=== PATIENT | female | born 1970 | race Caucasian/White ===

== ENCOUNTER → 2017-01-26 | Outpatient (CLI) | payer BC ==
[2017-01-26 12:45] LABS: HEMOGLOBIN 8.5 gm/dl (12.3-15.3); RED BLOOD COUNT 3.56 M/UL (4.00-5.10); WHITE BLOOD COUNT 3.9 K/UL (4.5-11.0)
[2017-01-26 13:05] LABS: BUN/CREATININE RATIO 10 (0-10)
== END ==
LOC: LAB 12:08
PROVIDERS: Internal Medicine Hematology & Oncology
DX: C85.90 Non-Hodgkin lymphoma, unspecified, unspecified site (principal)
CPT/HCPCS: 80053; 82728; 83540; 83550; 85025

== ENCOUNTER → 2017-02-06 | Outpatient (CLI) | payer BC | LOC: OPSV 02-03 15:30 | DX: D64.9 Anemia, unspecified (principal); R19.7 Diarrhea, unspecified; K90.9 Intestinal malabsorption, unspecified; C18.9 Malignant neoplasm of colon, unspecified | CPT/HCPCS: 96365; J1756; J7050 ==

== ENCOUNTER → 2017-02-11 | Outpatient (CLI) | payer BC | LOC: OPSV 15:10 | DX: D64.9 Anemia, unspecified (principal); R19.7 Diarrhea, unspecified; K90.9 Intestinal malabsorption, unspecified | CPT/HCPCS: 96365; J1756; J7050 ==

== ENCOUNTER → 2017-02-18 | Outpatient (CLI) | payer BC | LOC: OPSV 13:59 | DX: D64.9 Anemia, unspecified (principal); R19.7 Diarrhea, unspecified; K90.9 Intestinal malabsorption, unspecified; C18.9 Malignant neoplasm of colon, unspecified | CPT/HCPCS: 96365; J1756; J7050 ==

== ENCOUNTER → 2017-02-25 | Outpatient (CLI) | payer BC ==
[~2017-02-25] VITALS: Ht 162.6 cm; Wt 77.1 kg
== END ==
LOC: OPSV 15:00
DX: C18.9 Malignant neoplasm of colon, unspecified (principal); D64.9 Anemia, unspecified; R19.7 Diarrhea, unspecified; K90.9 Intestinal malabsorption, unspecified; Z88.5 Allergy status to narcotic agent; Z88.1 Allergy status to other antibiotic agents
CPT/HCPCS: 96365; J1756; J7050

== ENCOUNTER → 2017-03-18 | Outpatient (CLI) | payer BC ==
[~2017-03-18] VITALS: Ht 162.6 cm; Wt 77.1 kg
[2017-03-18 15:47] LABS: HEMOGLOBIN 9.4 gm/dl (12.3-15.3); RED BLOOD COUNT 4.05 M/UL (4.00-5.10); WHITE BLOOD COUNT 4.2 K/UL (4.5-11.0)
[2017-03-18 15:56] LABS: BUN/CREATININE RATIO 10 (0-10)
== END ==
LOC: OPSV 15:02
PROVIDERS: Internal Medicine
DX: C18.9 Malignant neoplasm of colon, unspecified (principal); R19.7 Diarrhea, unspecified; K90.9 Intestinal malabsorption, unspecified; D64.9 Anemia, unspecified
CPT/HCPCS: 36415; 80048; 80076; 82607; 82728; 83540; 84443; 85025; 96365; J1756; J7050

== ENCOUNTER → 2017-03-23 | Outpatient (CLI) | payer BC ==
[2017-03-23 09:31] LABS: HEMOGLOBIN 9.5 gm/dl (12.3-15.3); RED BLOOD COUNT 4.09 M/UL (4.00-5.10); WHITE BLOOD COUNT 3.4 K/UL (4.5-11.0)
[2017-03-23 10:20] LABS: BUN/CREATININE RATIO 11 (0-10)
== END ==
LOC: LAB 08:42
PROVIDERS: Internal Medicine Hematology & Oncology
DX: D50.8 Other iron deficiency anemias (principal)
CPT/HCPCS: 36415; 80053; 82378; 83615; 84550; 85025

== ENCOUNTER → 2017-04-29 | Outpatient (CLI) | payer BC ==
[~2017-04-29] VITALS: Ht 162.6 cm; Wt 77.1 kg
[2017-04-29 12:56] LABS: HEMOGLOBIN 9.6 gm/dl (12.3-15.3); RED BLOOD COUNT 4.26 M/UL (4.00-5.10); WHITE BLOOD COUNT 4.6 K/UL (4.5-11.0)
== END ==
LOC: OPSV 11:00
PROVIDERS: Internal Medicine
DX: D64.9 Anemia, unspecified (principal); R19.7 Diarrhea, unspecified; K90.9 Intestinal malabsorption, unspecified; C18.9 Malignant neoplasm of colon, unspecified
CPT/HCPCS: 36415; 82607; 82728; 83540; 85027; 96365; J1756; J7050

== ENCOUNTER → 2017-08-11 | Outpatient (CLI) | payer BC ==
[2017-08-11 09:21] LABS: BUN/CREATININE RATIO 12 (0-10)
[2017-08-11 09:37] LABS: HEMOGLOBIN 10.6 gm/dl (12.3-15.3); RED BLOOD COUNT 4.41 M/UL (4.00-5.10); WHITE BLOOD COUNT 4.3 K/UL (4.5-11.0)
== END ==
LOC: LAB 07:46
PROVIDERS: Internal Medicine Hematology & Oncology
DX: C83.30 Diffuse large B-cell lymphoma, unspecified site (principal)
CPT/HCPCS: 36415; 80053; 82378; 83615; 84550; 85025

== ENCOUNTER → 2020-12-17 | Outpatient (CLI) | payer BC ==
[~2020-12-17] MED LIST: ANTI-DIARRHEAL2 M1 PO; BENTYL 10MG CAP10 MG PO; BENTYL 20MG TAB20 MG PO; EFFEXOR XR75 MG PO; LOMOTIL 2.5-0.1 EACH PO; LOPERAMIDE2 MG PO; PROTONIX40 M1 PO; PROZAC20 MG PO; WELCHOL 625 MG625 MG PO; ZOFRAN4 MG PO
[2020-12-17 14:24] LABS: HEMOGLOBIN 14.5 gm/dl (12.3-15.3); RED BLOOD COUNT 5.04 M/UL (4.00-5.10)
== END ==
LOC: LAB 13:31
PROVIDERS: Internal Medicine
DX: E87.6 Hypokalemia (principal); E78.5 Hyperlipidemia, unspecified; I10 Essential (primary) hypertension
CPT/HCPCS: 36415; 80053; 83735; 85025; J7030

== ENCOUNTER → 2020-12-18 | Outpatient (CLI) | payer BC | LOC: OPSV 12:30 | PROVIDERS: Internal Medicine | DX: N17.9 Acute kidney failure, unspecified (principal); E86.0 Dehydration | CPT/HCPCS: 36415; 80053; 96360; 96361; J7030 ==

== ENCOUNTER 2020-12-23 12:01 | Inpatient (IN) | payer BC ==
[~2020-12-23] VITALS: Ht 162.6 cm; Wt 61.2 kg
[2020-12-23 13:14] LABS: RED BLOOD COUNT 5.84 M/UL (4.00-5.10); WHITE BLOOD COUNT 10.6 K/UL (4.5-11.0)
[2020-12-23 13:18] LABS: HEMOGLOBIN 17.3 gm/dl (12.3-15.3)
[2020-12-24 04:51] LABS: WHITE BLOOD COUNT 8.3 K/UL (4.5-11.0)
[2020-12-24 04:53] LABS: HEMOGLOBIN 12.3 gm/dl (12.3-15.3); RED BLOOD COUNT 4.29 M/UL (4.00-5.10)
[2020-12-24] MEDS ORDERED: LOMOTIL 2.5-0.1 EACH PO (13:23)
== END 2020-12-24 14:10 | disposition home or self-care (01) | DRG 683 ==
LOC: ER1 12:01 → CDU 14:11
PROVIDERS: Physician Assistant; Physician Assistant Medical; ADMIT Internal Medicine
DX: N17.9 Acute kidney failure, unspecified (principal); E87.1 Hypo-osmolality and hyponatremia; C85.90 Non-Hodgkin lymphoma, unspecified, unspecified site; E87.6 Hypokalemia; Z85.038 Personal history of other malignant neoplasm of large intestine; F41.9 Anxiety disorder, unspecified; Z20.822 Contact with and (suspected) exposure to COVID-19; Z90.49 Acquired absence of other specified parts of digestive tract; E86.0 Dehydration; R11.2 Nausea with vomiting, unspecified; E83.42 Hypomagnesemia
CPT/HCPCS: 80048; 80053; 83735; 85025; 85027; 96365; 96366; 96375; 99285; J2405; J3475; J7030; U0002

== ENCOUNTER → 2020-12-25 | Outpatient (CLI) | payer BC, OTHER | LOC: OPSV 08:05 | PROVIDERS: Internal Medicine | DX: R11.2 Nausea with vomiting, unspecified (principal); R19.7 Diarrhea, unspecified; E87.1 Hypo-osmolality and hyponatremia; E86.0 Dehydration | CPT/HCPCS: 80053; 83735 ==

== ENCOUNTER → 2021-01-07 | Outpatient (CLI) | payer BC, OTHER | LOC: LAB 14:51 | PROVIDERS: Internal Medicine | DX: R11.10 Vomiting, unspecified (principal); R19.7 Diarrhea, unspecified | CPT/HCPCS: 36415; 80053 ==

== ENCOUNTER → 2021-01-08 | Outpatient (CLI) | payer BC, OTHER | LOC: OPSV 09:53 | PROVIDERS: Internal Medicine | DX: N19 Unspecified kidney failure (principal); E86.0 Dehydration | CPT/HCPCS: 80053; 96360; 96361; J7030 ==

== ENCOUNTER → 2021-01-09 | Outpatient (CLI) | payer BC, OTHER | LOC: OPSV 07:55 | PROVIDERS: Internal Medicine | DX: N19 Unspecified kidney failure (principal); E86.0 Dehydration | CPT/HCPCS: 36415; 80053; 96360; 96361; J0696 ==

== ENCOUNTER → 2021-01-28 | Outpatient (CLI) | payer BC, OTHER | LOC: OPSV 09:35 | PROVIDERS: Internal Medicine | DX: E86.0 Dehydration (principal); E87.6 Hypokalemia | CPT/HCPCS: 36415; 80048; 96360; 96361; J3480 ==

== ENCOUNTER → 2021-01-30 | Outpatient (CLI) | payer BC, OTHER | LOC: LAB 09:38 | PROVIDERS: Internal Medicine | DX: E86.0 Dehydration (principal); R11.10 Vomiting, unspecified | CPT/HCPCS: 36415; 80053 ==

== ENCOUNTER → 2021-02-07 | Outpatient (CLI) | payer BC, OTHER | LOC: OPSV 10:02 | PROVIDERS: Internal Medicine | DX: N17.9 Acute kidney failure, unspecified (principal) | CPT/HCPCS: 36415; 80048; 96360 ==

== ENCOUNTER → 2021-02-08 | Outpatient (CLI) | payer BC, OTHER | LOC: LAB 08:47 | PROVIDERS: Internal Medicine | DX: N17.9 Acute kidney failure, unspecified (principal) | CPT/HCPCS: 36415; 80053; 83735 ==

== ENCOUNTER → 2021-02-21 | Outpatient (CLI) | payer BC, OTHER | LOC: OPSV 13:12 | DX: K90.9 Intestinal malabsorption, unspecified (principal); R79.0 Abnormal level of blood mineral | CPT/HCPCS: 96365; J3475 ==

== ENCOUNTER → 2021-02-27 | Outpatient (CLI) | payer BC, OTHER | LOC: OPSV 12:56 | DX: E86.0 Dehydration (principal); R79.0 Abnormal level of blood mineral; Z15.09 Genetic susceptibility to other malignant neoplasm | CPT/HCPCS: 96360; 96365; J3475 ==

== ENCOUNTER → 2021-02-28 | Outpatient (CLI) | payer BC, OTHER ==
[2021-02-28 09:21] LABS: BUN/CREATININE RATIO 23 (0-10)
== END ==
LOC: LAB 07:54
PROVIDERS: Internal Medicine
DX: E88.09 Other disorders of plasma-protein metabolism, not elsewhere classified (principal); R79.0 Abnormal level of blood mineral; Z15.09 Genetic susceptibility to other malignant neoplasm
CPT/HCPCS: 36415; 80053; 83735

== ENCOUNTER → 2021-03-15 | Outpatient (CLI) | payer BC, OTHER | LOC: OPSV 09:55 | DX: R79.0 Abnormal level of blood mineral (principal) | CPT/HCPCS: 96365; J3475 ==

== ENCOUNTER → 2021-04-19 | Outpatient (CLI) | payer BC, OTHER | LOC: LAB 13:35 | PROVIDERS: Internal Medicine | DX: R19.7 Diarrhea, unspecified (principal); R79.0 Abnormal level of blood mineral | CPT/HCPCS: 36415; 80053; 83735 ==

== ENCOUNTER → 2021-04-22 | Outpatient (CLI) | payer BC, OTHER | LOC: LAB 07:34 | PROVIDERS: Internal Medicine | DX: E87.6 Hypokalemia (principal); R19.7 Diarrhea, unspecified; R79.0 Abnormal level of blood mineral | CPT/HCPCS: 36415; 80053; 83735 ==

== ENCOUNTER 2021-07-22 06:18 | Inpatient (IN) | payer BC ==
[~2021-07-22] VITALS: Ht 162.6 cm; Wt 72.6 kg
[2021-07-22 07:12] LABS: HEMOGLOBIN 15.8 gm/dl (12.3-15.3); RED BLOOD COUNT 5.53 M/UL (4.00-5.10)
[2021-07-22] MEDS ORDERED: NEXIUM40 MG PO (10:34)
[2021-07-22] MEDS ORDERED: COLESTID1 GM PO (10:35)
[2021-07-22] MEDS ORDERED: MAGNESIUM400 M2 PO (10:35)
[2021-07-22] MEDS ORDERED: REGLAN5 MG PO (10:54)
[2021-07-23 08:36] LABS: RED BLOOD COUNT 4.71 M/UL (4.00-5.10); WHITE BLOOD COUNT 9.6 K/UL (4.5-11.0)
[2021-07-23 15:38] LABS: WHITE BLOOD COUNT 13.1 K/UL (4.5-11.0)
[2021-07-24 06:25] LABS: HEMOGLOBIN 12.6 gm/dl (12.3-15.3); RED BLOOD COUNT 4.43 M/UL (4.00-5.10); WHITE BLOOD COUNT 10.2 K/UL (4.5-11.0)
[2021-07-24 07:02] LABS: BUN/CREATININE RATIO 33 (0-10)
[2021-07-25 07:19] LABS: HEMOGLOBIN 11.6 gm/dl (12.3-15.3); RED BLOOD COUNT 4.19 M/UL (4.00-5.10); WHITE BLOOD COUNT 8.7 K/UL (4.5-11.0)
[2021-07-25 08:05] LABS: BUN/CREATININE RATIO 27 (0-10)
== END 2021-07-25 12:20 | disposition home or self-care (01) | DRG 872 ==
LOC: ER1 06:18 → CDU 10:09 → M/S 16:26
PROVIDERS: Emergency Medicine; ADMIT Internal Medicine
DX: A41.9 Sepsis, unspecified organism (principal); N17.9 Acute kidney failure, unspecified; K91.30 Postprocedural intestinal obstruction, unspecified as to partial versus complete; E87.1 Hypo-osmolality and hyponatremia; E87.2 Acidosis; K56.7 Ileus, unspecified; E86.0 Dehydration; K52.9 Noninfective gastroenteritis and colitis, unspecified; E87.6 Hypokalemia; Y83.8 Other surgical procedures as the cause of abnormal reaction of the patient, or of later complication, without mention of misadventure at the time of the procedure; Z90.49 Acquired absence of other specified parts of digestive tract; Z90.710 Acquired absence of both cervix and uterus
CPT/HCPCS: 36415; 74018; 80048; 80053; 80076; 81001; 82436; 83605; 83615; 83690; 83735; 83930; 83935; 84100; 84133; 84300; 84703; 85025; 85027; 86140; 87040; 87086; 87449; 96360; 96361; 96374; 96375; 99285; C9113; J1170; J1335; J1650; J1885; J2270; J2405; J2550; J2765; J3480; J7030; U0002

== ENCOUNTER → 2021-08-08 | Outpatient (CLI) | payer BC ==
[~2021-08-08] MED LIST changes: +COLESTID1 GM PO; +MAGNESIUM400 M2 PO; +NEXIUM40 MG PO; +REGLAN5 MG PO
== END ==
LOC: LAB 10:12
PROVIDERS: Internal Medicine
DX: N17.9 Acute kidney failure, unspecified (principal); E86.0 Dehydration; E87.6 Hypokalemia
CPT/HCPCS: 36415; 80053; 83735

== ENCOUNTER → 2021-08-08 | Outpatient (CLI) | payer BC | LOC: OPSV 12:42 | PROVIDERS: Internal Medicine | DX: N17.9 Acute kidney failure, unspecified (principal); E86.0 Dehydration | CPT/HCPCS: 36415; 80048; 96360; 96361; J7030 ==

== ENCOUNTER → 2021-08-09 | Outpatient (CLI) | payer BC | LOC: OPSV 11:27 | PROVIDERS: Internal Medicine | DX: N17.9 Acute kidney failure, unspecified (principal) | CPT/HCPCS: 36415; 80048; 83735; 96360; 96361; J3480 ==

== ENCOUNTER → 2021-09-02 | Outpatient (CLI) | payer BC ==
[2021-09-02 15:30] LABS: HEMOGLOBIN 8.5 gm/dl (12.3-15.3); RED BLOOD COUNT 3.24 M/UL (4.00-5.10); WHITE BLOOD COUNT 13.2 K/UL (4.5-11.0)
[2021-09-02 15:44] LABS: BUN/CREATININE RATIO 42 (0-10)
== END ==
LOC: LBRF 14:26
PROVIDERS: Internal Medicine Hematology & Oncology
DX: Z45.2 Encounter for adjustment and management of vascular access device (principal); C26.0 Malignant neoplasm of intestinal tract, part unspecified; C85.90 Non-Hodgkin lymphoma, unspecified, unspecified site; E43 Unspecified severe protein-calorie malnutrition; K51.90 Ulcerative colitis, unspecified, without complications
CPT/HCPCS: 80053; 83735; 84100; 85025

== ENCOUNTER → 2021-10-10 | Outpatient (CLI) | payer BC ==
[~2021-10-10] VITALS: Ht 162.6 cm; Wt 65.8 kg
== END ==
LOC: EROP → ER1 07-19 16:31 → EDSTATUS 07-19 16:53 → EROP 12:00 → OPSV 12:52
PROVIDERS: Internal Medicine
DX: K90.9 Intestinal malabsorption, unspecified (principal); R79.0 Abnormal level of blood mineral
CPT/HCPCS: 36415; 80048; 83735; 96360; 96361; J3475; J3480; J7030

== ENCOUNTER → 2021-10-11 | Outpatient (CLI) | payer BC | LOC: OPSV 14:47 | DX: K90.9 Intestinal malabsorption, unspecified (principal) | CPT/HCPCS: 96360; J3480 ==

== ENCOUNTER → 2021-10-23 | Outpatient (CLI) | payer BC | LOC: OPSV 14:14 | DX: K90.9 Intestinal malabsorption, unspecified (principal); R79.0 Abnormal level of blood mineral | CPT/HCPCS: 96365; 96366; J3475 ==

== ENCOUNTER → 2021-10-28 | Outpatient (CLI) | payer BC | LOC: LAB 16:32 | PROVIDERS: Internal Medicine | DX: K90.9 Intestinal malabsorption, unspecified (principal); Z15.09 Genetic susceptibility to other malignant neoplasm; R79.0 Abnormal level of blood mineral | CPT/HCPCS: 36415; 80048; 83735 ==

== ENCOUNTER → 2021-10-29 | Outpatient (CLI) | payer BC ==
[~2021-10-29] VITALS: Ht 162.6 cm; Wt 63.0 kg
== END ==
LOC: OPSV 11:38
PROVIDERS: Internal Medicine
DX: E86.0 Dehydration (principal); R79.0 Abnormal level of blood mineral
CPT/HCPCS: 36415; 80048; 83735; 96360; 96361; J3475; J7030

== ENCOUNTER → 2021-10-30 | Outpatient (CLI) | payer BC ==
[~2021-10-30] VITALS: Ht 162.6 cm; Wt 63.0 kg
== END ==
LOC: OPSV 11:00
PROVIDERS: Internal Medicine
DX: E86.0 Dehydration (principal); E87.6 Hypokalemia; Z15.09 Genetic susceptibility to other malignant neoplasm; K90.9 Intestinal malabsorption, unspecified
CPT/HCPCS: 36415; 80048; 96360; J3480

== ENCOUNTER → 2021-11-01 | Outpatient (CLI) | payer BC ==
[~2021-11-01] VITALS: Ht 162.6 cm; Wt 63.0 kg
== END ==
LOC: OPSV 13:55
DX: E86.0 Dehydration (principal); K90.9 Intestinal malabsorption, unspecified; E87.6 Hypokalemia; Z15.09 Genetic susceptibility to other malignant neoplasm
CPT/HCPCS: 96360; 96361; J3480

== ENCOUNTER → 2021-11-04 | Outpatient (CLI) | payer BC ==
[2021-11-04 16:16] LABS: BUN/CREATININE RATIO 12 (0-10)
== END ==
LOC: LAB 14:40
PROVIDERS: Internal Medicine
DX: E86.0 Dehydration (principal); N17.9 Acute kidney failure, unspecified; R79.0 Abnormal level of blood mineral
CPT/HCPCS: 36415; 80048; 83735

== ENCOUNTER → 2021-11-05 | Outpatient (CLI) | payer BC | LOC: OPSV 11:25 | DX: E86.0 Dehydration (principal); D50.9 Iron deficiency anemia, unspecified; K90.9 Intestinal malabsorption, unspecified; Z15.09 Genetic susceptibility to other malignant neoplasm | CPT/HCPCS: 96360; 96361; J3475; J3480 ==

== ENCOUNTER → 2021-11-07 | Outpatient (CLI) | payer BC ==
[2021-11-07 16:53] LABS: BUN/CREATININE RATIO 10 (0-10)
== END ==
LOC: LAB 14:55
PROVIDERS: Internal Medicine
DX: E86.0 Dehydration (principal); R79.0 Abnormal level of blood mineral; Z15.09 Genetic susceptibility to other malignant neoplasm
CPT/HCPCS: 36415; 80053; 83735

== ENCOUNTER → 2021-11-08 | Outpatient (CLI) | payer BC | LOC: OPSV 11:00 | DX: R79.0 Abnormal level of blood mineral (principal); Z15.09 Genetic susceptibility to other malignant neoplasm; K90.9 Intestinal malabsorption, unspecified | CPT/HCPCS: 96365; 96366; J3475 ==

== ENCOUNTER → 2021-11-11 | Outpatient (CLI) | payer BC ==
[2021-11-11 15:32] LABS: BUN/CREATININE RATIO 17 (0-10)
== END ==
LOC: LAB 14:38
PROVIDERS: Internal Medicine
DX: E86.0 Dehydration (principal); R79.0 Abnormal level of blood mineral
CPT/HCPCS: 36415; 80053; 83735

== ENCOUNTER → 2021-11-18 | Outpatient (CLI) | payer BC ==
[2021-11-19 08:14] LABS: A/G RATIO 1.4 (1.2-2.2); BILIRUBIN, TOTAL 0.4 mg/dL (0.0-1.2); CALCIUM, SERUM 9.6 mg/dL (8.7-10.2); CREATININE, SERUM 1.26 mg/dL (0.57-1.00); GLOBULIN, TOTAL 3.3 g/dL (1.5-4.5); MAGNESIUM 0.7 mg/dL (1.6-2.3); POTASSIUM, SERUM 4.5 mmol/L (3.5-5.2)
== END ==
LOC: LAB 10:25
PROVIDERS: Internal Medicine
DX: E86.0 Dehydration (principal); K90.9 Intestinal malabsorption, unspecified; R79.0 Abnormal level of blood mineral
CPT/HCPCS: 36415; 80053; 83735

== ENCOUNTER → 2021-11-19 | Outpatient (CLI) | payer BC | LOC: OPSV 14:41 | DX: E86.0 Dehydration (principal); R79.0 Abnormal level of blood mineral | CPT/HCPCS: 96360; 96365; J3475; J7030 ==

== ENCOUNTER → 2021-11-25 | Outpatient (CLI) | payer BC | LOC: LAB 15:10 | PROVIDERS: Internal Medicine | DX: K90.9 Intestinal malabsorption, unspecified (principal); R79.0 Abnormal level of blood mineral; E88.09 Other disorders of plasma-protein metabolism, not elsewhere classified | CPT/HCPCS: 36415; 80053; 83735 ==

== ENCOUNTER → 2021-12-09 | Outpatient (CLI) | payer BC ==
[~2021-12-09] VITALS: Ht 162.6 cm; Wt 63.0 kg
== END ==
LOC: OPSV 14:59
DX: E86.0 Dehydration (principal); R79.0 Abnormal level of blood mineral; Z15.09 Genetic susceptibility to other malignant neoplasm; R30.0 Dysuria; K90.9 Intestinal malabsorption, unspecified
CPT/HCPCS: 96360; 96368; J3475

== ENCOUNTER → 2021-12-16 | Outpatient (CLI) | payer BC ==
[~2021-12-16] VITALS: Ht 162.6 cm; Wt 63.0 kg
== END ==
LOC: OPSV 14:32
DX: E86.0 Dehydration (principal); E87.6 Hypokalemia; N17.9 Acute kidney failure, unspecified; K90.9 Intestinal malabsorption, unspecified; Z15.09 Genetic susceptibility to other malignant neoplasm
CPT/HCPCS: 96360; 96361; J3475; J7030

== ENCOUNTER → 2021-12-16 | Outpatient (CLI) | payer BC | LOC: LAB 12:15 | PROVIDERS: Internal Medicine | DX: E86.0 Dehydration (principal); K90.9 Intestinal malabsorption, unspecified; R79.0 Abnormal level of blood mineral | CPT/HCPCS: 36415; 80053; 83735 ==

== ENCOUNTER → 2021-12-19 | Outpatient (CLI) | payer BC | LOC: LAB 13:50 | PROVIDERS: Internal Medicine | DX: E86.0 Dehydration (principal); K90.9 Intestinal malabsorption, unspecified; R79.0 Abnormal level of blood mineral | CPT/HCPCS: 36415; 80053; 83735 ==

== ENCOUNTER → 2021-12-20 | Outpatient (CLI) | payer BC ==
[~2021-12-20] VITALS: Ht 162.6 cm; Wt 58.5 kg
== END ==
LOC: OPSV 11:21
DX: E86.0 Dehydration (principal); R79.0 Abnormal level of blood mineral
CPT/HCPCS: 96360; 96365; 96366; J3475; J7030

== ENCOUNTER → 2021-12-23 | Outpatient (CLI) | payer BC | LOC: LAB 15:55 | PROVIDERS: Internal Medicine | DX: E86.0 Dehydration (principal); K90.9 Intestinal malabsorption, unspecified; R79.0 Abnormal level of blood mineral | CPT/HCPCS: 36415; 80053; 83735 ==

== ENCOUNTER → 2021-12-24 | Outpatient (CLI) | payer BC | LOC: OPSV 11:00 | DX: E86.0 Dehydration (principal); R79.0 Abnormal level of blood mineral | CPT/HCPCS: 96360; 96365; 96366; J3475 ==

== ENCOUNTER → 2021-12-26 | Outpatient (CLI) | payer BC ==
[2021-12-27 09:15] LABS: A/G RATIO 1.5 (1.2-2.2); BILIRUBIN, TOTAL 0.3 mg/dL (0.0-1.2); CREATININE, SERUM 1.01 mg/dL (0.57-1.00); GLOBULIN, TOTAL 2.8 g/dL (1.5-4.5); MAGNESIUM 1.4 mg/dL (1.6-2.3); PROTEIN, TOTAL, SERUM 7.1 g/dL (6.0-8.5)
== END ==
LOC: LAB 15:42
PROVIDERS: Internal Medicine
DX: E86.0 Dehydration (principal); K90.9 Intestinal malabsorption, unspecified; R79.0 Abnormal level of blood mineral
CPT/HCPCS: 36415; 80053; 83735

== ENCOUNTER → 2021-12-27 | Outpatient (CLI) | payer BC ==
[~2021-12-27] VITALS: Ht 162.6 cm; Wt 58.5 kg
== END ==
LOC: OPSV 11:00
DX: E86.0 Dehydration (principal); E46 Unspecified protein-calorie malnutrition; R79.0 Abnormal level of blood mineral; K90.9 Intestinal malabsorption, unspecified
CPT/HCPCS: 96360; 96365; 96366; J3475

== ENCOUNTER → 2021-12-30 | Outpatient (CLI) | payer BC | LOC: OPSV 09:41 | PROVIDERS: Internal Medicine | DX: E86.0 Dehydration (principal); K90.9 Intestinal malabsorption, unspecified; R79.0 Abnormal level of blood mineral | CPT/HCPCS: 36415; 80053; 83735; 96360; 96365; 96366; J3475 ==

== ENCOUNTER → 2022-01-02 | Outpatient (CLI) | payer BC ==
[~2022-01-02] VITALS: Ht 162.6 cm; Wt 63.0 kg
[2022-01-02 14:04] LABS: BUN/CREATININE RATIO 17 (0-10)
== END ==
LOC: OPSV 11:00
PROVIDERS: Internal Medicine
DX: E86.0 Dehydration (principal); K90.9 Intestinal malabsorption, unspecified; R79.0 Abnormal level of blood mineral
CPT/HCPCS: 80053; 83735; 96360; 96365; 96366; J3475; J7030

== ENCOUNTER → 2022-01-03 | Outpatient (CLI) | payer BC | LOC: CT 12-31 13:00 | DX: K65.1 Peritoneal abscess (principal); Z93.2 Ileostomy status | CPT/HCPCS: Q9967 ==

== ENCOUNTER → 2022-01-06 | Outpatient (CLI) | payer BC ==
[2022-01-06 17:15] LABS: HEMOGLOBIN 10.1 gm/dl (12.3-15.3); RED BLOOD COUNT 3.88 M/UL (4.00-5.10); WHITE BLOOD COUNT 6.1 K/UL (4.5-11.0)
[2022-01-06 17:30] LABS: GAMMA GLUTAMYL TRANSPEPTIDASE 66 U/L (7-64)
[2022-01-08 09:15] LABS: VITAMIN D, 25-HYDROXY 27.7 ng/mL (30.0-100.0)
[2022-01-08 12:16] LABS: HBSAG SCREEN Negative (Negative); HEP A AB, IGM Negative (Negative); HEP B CORE AB, TOT Negative (Negative); HEP C VIRUS AB <0.1 (0.0-0.9)
== END ==
LOC: LAB 15:41
PROVIDERS: Internal Medicine
DX: E86.0 Dehydration (principal); K90.9 Intestinal malabsorption, unspecified; R79.0 Abnormal level of blood mineral; Z15.09 Genetic susceptibility to other malignant neoplasm; N73.9 Female pelvic inflammatory disease, unspecified; K65.1 Peritoneal abscess; K63.2 Fistula of intestine; K91.2 Postsurgical malabsorption, not elsewhere classified
CPT/HCPCS: 36415; 80053; 80074; 82607; 82728; 82746; 82977; 83540; 83550; 83735; 84630; 85025; 85652; 86140; 86704; 86706; 86708; 86709; 86803; 87340

== ENCOUNTER → 2022-01-07 | Outpatient (CLI) | payer BC | LOC: OPSV 09:00 | DX: E86.0 Dehydration (principal); R79.0 Abnormal level of blood mineral; E46 Unspecified protein-calorie malnutrition | CPT/HCPCS: 96365; 96366; J3475; J3480 ==

== ENCOUNTER → 2022-01-09 | Outpatient (CLI) | payer BC | LOC: LAB 14:36 | PROVIDERS: Internal Medicine | DX: E86.0 Dehydration (principal); K90.9 Intestinal malabsorption, unspecified; R79.0 Abnormal level of blood mineral | CPT/HCPCS: 36415; 80053; 83735 ==

== ENCOUNTER → 2022-01-10 | Outpatient (CLI) | payer BC | LOC: OPSV 11:00 | DX: E86.0 Dehydration (principal); R79.0 Abnormal level of blood mineral; K90.9 Intestinal malabsorption, unspecified | CPT/HCPCS: 96360; 96361; J3480 ==

== ENCOUNTER → 2022-01-13 | Outpatient (CLI) | payer BC | LOC: LAB 15:02 | PROVIDERS: Internal Medicine | DX: K65.1 Peritoneal abscess (principal); K63.1 Perforation of intestine (nontraumatic); K91.2 Postsurgical malabsorption, not elsewhere classified; E86.0 Dehydration; R79.0 Abnormal level of blood mineral | CPT/HCPCS: 36415; 80053; 83735; 84466 ==

== ENCOUNTER → 2022-01-14 | Outpatient (CLI) | payer BC | LOC: OPSV 10:59 | DX: E86.0 Dehydration (principal); R79.0 Abnormal level of blood mineral | CPT/HCPCS: 96365; 96366; J3475; J7030 ==

== ENCOUNTER → 2022-01-16 | Outpatient (CLI) | payer BC ==
[2022-01-16 16:14] LABS: HEMOGLOBIN 9.2 gm/dl (12.3-15.3); RED BLOOD COUNT 3.38 M/UL (4.00-5.10); WHITE BLOOD COUNT 5.3 K/UL (4.5-11.0)
== END ==
LOC: LAB 15:05
PROVIDERS: Internal Medicine; Internal Medicine Hematology & Oncology
DX: E86.0 Dehydration (principal); K90.9 Intestinal malabsorption, unspecified; R79.0 Abnormal level of blood mineral; C83.30 Diffuse large B-cell lymphoma, unspecified site
CPT/HCPCS: 36415; 80053; 82378; 82728; 83540; 83550; 83735; 85025

== ENCOUNTER → 2022-01-17 | Outpatient (CLI) | payer BC | LOC: OPSV 11:00 | DX: E86.0 Dehydration (principal); R79.0 Abnormal level of blood mineral; E46 Unspecified protein-calorie malnutrition | CPT/HCPCS: 96360; J7030 ==

== ENCOUNTER → 2022-01-20 | Outpatient (CLI) | payer BC | LOC: OPSV 13:30 | PROVIDERS: Internal Medicine | DX: E86.0 Dehydration (principal); K90.9 Intestinal malabsorption, unspecified; R79.0 Abnormal level of blood mineral | CPT/HCPCS: 36415; 80053; 83735 ==

== ENCOUNTER → 2022-01-21 | Outpatient (CLI) | payer BC ==
[~2022-01-21] VITALS: Ht 162.6 cm; Wt 63.0 kg
== END ==
LOC: OPSV 11:00
DX: E86.0 Dehydration (principal); R79.0 Abnormal level of blood mineral; K90.9 Intestinal malabsorption, unspecified
CPT/HCPCS: 96365; 96366; J3475; J7030

== ENCOUNTER → 2022-01-23 | Outpatient (CLI) | payer BC ==
[2022-01-23 14:38] LABS: HEMOGLOBIN 10.8 gm/dl (12.3-15.3); RED BLOOD COUNT 3.89 M/UL (4.00-5.10); WHITE BLOOD COUNT 5.4 K/UL (4.5-11.0)
== END ==
LOC: LAB 14:15
PROVIDERS: Internal Medicine
DX: E86.0 Dehydration (principal); K90.9 Intestinal malabsorption, unspecified; R79.0 Abnormal level of blood mineral; D50.9 Iron deficiency anemia, unspecified
CPT/HCPCS: 36415; 80053; 82728; 83540; 83735; 85025

== ENCOUNTER → 2022-01-24 | Outpatient (CLI) | payer BC ==
[~2022-01-24] VITALS: Ht 162.6 cm; Wt 63.0 kg
== END ==
LOC: OPSV 11:00
DX: E86.0 Dehydration (principal); R79.0 Abnormal level of blood mineral; K90.9 Intestinal malabsorption, unspecified
CPT/HCPCS: 96365; J1756

== ENCOUNTER → 2022-01-27 | Outpatient (CLI) | payer BC | LOC: LAB 14:28 | PROVIDERS: Internal Medicine | DX: E86.0 Dehydration (principal); K90.9 Intestinal malabsorption, unspecified; R79.0 Abnormal level of blood mineral | CPT/HCPCS: 36415; 80053; 83735 ==

== ENCOUNTER → 2022-01-28 | Outpatient (CLI) | payer BC | LOC: OPSV 10:37 | DX: D50.9 Iron deficiency anemia, unspecified (principal); K90.9 Intestinal malabsorption, unspecified | CPT/HCPCS: 96365; 96366; J3475; J3480 ==

== ENCOUNTER → 2022-01-30 | Outpatient (CLI) | payer BC | LOC: LAB 14:03 | PROVIDERS: Internal Medicine | DX: E86.0 Dehydration (principal); K90.9 Intestinal malabsorption, unspecified; R79.0 Abnormal level of blood mineral | CPT/HCPCS: 36415; 80053; 83735 ==

== ENCOUNTER → 2022-01-31 | Outpatient (CLI) | payer BC ==
[~2022-01-31] VITALS: Ht 162.6 cm; Wt 63.0 kg
== END ==
LOC: OPSV 08:26
DX: D50.9 Iron deficiency anemia, unspecified (principal); K90.9 Intestinal malabsorption, unspecified
CPT/HCPCS: 96365; 96366; 96367; J1756; J3475; J7030

== ENCOUNTER → 2022-02-03 | Outpatient (CLI) | payer BC | LOC: LAB 14:46 | PROVIDERS: Internal Medicine | DX: E86.0 Dehydration (principal); K90.9 Intestinal malabsorption, unspecified; R79.0 Abnormal level of blood mineral | CPT/HCPCS: 36415; 80053; 83735 ==

== ENCOUNTER → 2022-02-04 | Outpatient (CLI) | payer BC | LOC: OPSV 11:00 | DX: D50.9 Iron deficiency anemia, unspecified (principal); K90.9 Intestinal malabsorption, unspecified | CPT/HCPCS: 96365; 96366; J3475; J7030 ==

== ENCOUNTER → 2022-02-06 | Outpatient (CLI) | payer BC | LOC: LAB 11:40 | PROVIDERS: Internal Medicine | DX: K90.9 Intestinal malabsorption, unspecified (principal); R79.0 Abnormal level of blood mineral; Z15.09 Genetic susceptibility to other malignant neoplasm; E86.0 Dehydration | CPT/HCPCS: 36415; 80053; 83735 ==

== ENCOUNTER → 2022-02-07 | Outpatient (CLI) | payer BC ==
[~2022-02-07] VITALS: Ht 162.6 cm; Wt 63.0 kg
== END ==
LOC: OPSV 11:00
DX: D50.9 Iron deficiency anemia, unspecified (principal); K90.9 Intestinal malabsorption, unspecified; R79.0 Abnormal level of blood mineral; E86.0 Dehydration; E46 Unspecified protein-calorie malnutrition
CPT/HCPCS: 96361; 96365; J1756; J7030

== ENCOUNTER → 2022-02-17 | Outpatient (CLI) | payer BC ==
[~2022-02-17] VITALS: Ht 162.6 cm; Wt 63.0 kg
== END ==
LOC: OPSV 08:59
PROVIDERS: Internal Medicine
DX: D50.9 Iron deficiency anemia, unspecified (principal); K90.9 Intestinal malabsorption, unspecified; E86.0 Dehydration; R79.0 Abnormal level of blood mineral; Z15.09 Genetic susceptibility to other malignant neoplasm
CPT/HCPCS: 36415; 80053; 83735; 96365; 96366; 96367; 96368; J1756; J3475; J3480

== ENCOUNTER → 2022-02-20 | Outpatient (CLI) | payer BC | LOC: LAB 14:50 | PROVIDERS: Internal Medicine | DX: K90.9 Intestinal malabsorption, unspecified (principal); R79.0 Abnormal level of blood mineral; Z15.09 Genetic susceptibility to other malignant neoplasm | CPT/HCPCS: 36415; 80053; 83735 ==

== ENCOUNTER → 2022-02-21 | Outpatient (CLI) | payer BC | LOC: OPSV 11:00 | DX: E86.0 Dehydration (principal); R79.0 Abnormal level of blood mineral | CPT/HCPCS: 96365; 96366; J3475; J7030 ==

== ENCOUNTER → 2022-02-24 | Outpatient (CLI) | payer BC | LOC: LAB 13:08 | PROVIDERS: Internal Medicine | DX: Z15.09 Genetic susceptibility to other malignant neoplasm (principal); K90.9 Intestinal malabsorption, unspecified; E86.0 Dehydration; R79.0 Abnormal level of blood mineral | CPT/HCPCS: 36415; 80053; 82607; 83735; 84425 ==

== ENCOUNTER → 2022-02-25 | Outpatient (CLI) | payer BC ==
[~2022-02-25] VITALS: Ht 162.6 cm; Wt 63.0 kg
== END ==
LOC: OPSV 11:00
DX: D50.9 Iron deficiency anemia, unspecified (principal); K90.9 Intestinal malabsorption, unspecified
CPT/HCPCS: 96361; 96365; 96372; J1756; J3420

== ENCOUNTER → 2022-02-28 | Outpatient (CLI) | payer BC ==
[~2022-02-28] VITALS: Ht 162.6 cm; Wt 63.0 kg
== END ==
LOC: OPSV 11:00
DX: E87.6 Hypokalemia (principal); E53.8 Deficiency of other specified B group vitamins; R79.0 Abnormal level of blood mineral; K90.9 Intestinal malabsorption, unspecified
CPT/HCPCS: 96365; 96366; 96372; J3420; J3475

== ENCOUNTER → 2022-03-03 | Outpatient (CLI) | payer BC | LOC: LAB 15:12 | PROVIDERS: Internal Medicine | DX: K90.9 Intestinal malabsorption, unspecified (principal); R79.0 Abnormal level of blood mineral; Z15.09 Genetic susceptibility to other malignant neoplasm | CPT/HCPCS: 36415; 80053; 83735 ==

== ENCOUNTER → 2022-03-04 | Outpatient (CLI) | payer BC ==
[~2022-03-04] VITALS: Ht 162.6 cm; Wt 63.0 kg
== END ==
LOC: OPSV 11:00
DX: E53.8 Deficiency of other specified B group vitamins (principal); E87.6 Hypokalemia; R79.0 Abnormal level of blood mineral; K90.9 Intestinal malabsorption, unspecified
CPT/HCPCS: 96372; J1756; J3420

== ENCOUNTER → 2022-03-10 | Outpatient (CLI) | payer BC | LOC: LAB 09:59 | PROVIDERS: Internal Medicine | DX: R79.0 Abnormal level of blood mineral (principal); K90.9 Intestinal malabsorption, unspecified; Z15.09 Genetic susceptibility to other malignant neoplasm | CPT/HCPCS: 36415; 80053; 83735 ==

== ENCOUNTER → 2022-03-12 | Outpatient (CLI) | payer BC | LOC: LAB 15:34 | PROVIDERS: Internal Medicine | DX: Z15.09 Genetic susceptibility to other malignant neoplasm (principal); K90.9 Intestinal malabsorption, unspecified; E83.42 Hypomagnesemia | CPT/HCPCS: 36415; 80053; 83735 ==

== ENCOUNTER → 2022-03-13 | Outpatient (CLI) | payer BC | LOC: OPSV 09:00 | DX: D50.9 Iron deficiency anemia, unspecified (principal); K90.9 Intestinal malabsorption, unspecified | CPT/HCPCS: 96372; J3420 ==

== ENCOUNTER → 2022-03-17 | Outpatient (CLI) | payer BC | LOC: LAB 13:49 | PROVIDERS: Internal Medicine | DX: R79.0 Abnormal level of blood mineral (principal); K90.9 Intestinal malabsorption, unspecified; Z15.09 Genetic susceptibility to other malignant neoplasm | CPT/HCPCS: 36415; 80053; 83735 ==

== ENCOUNTER → 2022-03-18 | Outpatient (CLI) | payer BC ==
[~2022-03-18] VITALS: Ht 162.6 cm; Wt 63.0 kg
== END ==
LOC: OPSV 11:00
DX: D50.9 Iron deficiency anemia, unspecified (principal); R79.0 Abnormal level of blood mineral; K90.9 Intestinal malabsorption, unspecified
CPT/HCPCS: 96365; 96366; 96372; J3420; J3475

== ENCOUNTER → 2022-03-20 | Outpatient (CLI) | payer BC | LOC: LAB 15:00 | PROVIDERS: Internal Medicine | DX: R79.0 Abnormal level of blood mineral (principal); K90.9 Intestinal malabsorption, unspecified; Z15.09 Genetic susceptibility to other malignant neoplasm | CPT/HCPCS: 36415; 80053; 83735 ==

== ENCOUNTER → 2022-03-21 | Outpatient (CLI) | payer BC | LOC: OPSV 09:00 | DX: D50.9 Iron deficiency anemia, unspecified (principal); K90.9 Intestinal malabsorption, unspecified; E86.0 Dehydration; R79.0 Abnormal level of blood mineral; Z15.09 Genetic susceptibility to other malignant neoplasm | CPT/HCPCS: 96360; 96361; 96372; J3420 ==

== ENCOUNTER → 2022-03-24 | Outpatient (CLI) | payer BC | LOC: LAB 15:40 | PROVIDERS: Internal Medicine | DX: K90.9 Intestinal malabsorption, unspecified (principal); R79.0 Abnormal level of blood mineral | CPT/HCPCS: 36415; 80053; 83735 ==

== ENCOUNTER → 2022-03-25 | Outpatient (CLI) | payer BC ==
[~2022-03-25] VITALS: Ht 162.6 cm; Wt 63.0 kg
== END ==
LOC: OPSV 09:34
DX: E83.42 Hypomagnesemia (principal)
CPT/HCPCS: 96365; 96366; J3420; J3475

== ENCOUNTER → 2022-03-27 | Outpatient (CLI) | payer BC | LOC: LAB 14:51 | PROVIDERS: Internal Medicine | DX: R79.0 Abnormal level of blood mineral (principal); K90.9 Intestinal malabsorption, unspecified | CPT/HCPCS: 36415; 80053; 83735 ==

== ENCOUNTER → 2022-03-28 | Outpatient (CLI) | payer BC ==
[~2022-03-28] VITALS: Ht 162.6 cm; Wt 63.0 kg
== END ==
LOC: OPSV 09:31
DX: D50.9 Iron deficiency anemia, unspecified (principal); K90.9 Intestinal malabsorption, unspecified
CPT/HCPCS: 96365; 96366; 96372; J3420; J3475; J7030

== ENCOUNTER → 2022-03-31 | Outpatient (CLI) | payer BC | LOC: LAB 15:41 | PROVIDERS: Internal Medicine | DX: R19.7 Diarrhea, unspecified (principal); E87.6 Hypokalemia; R79.0 Abnormal level of blood mineral | CPT/HCPCS: 36415; 80053; 83735 ==

== ENCOUNTER → 2022-04-01 | Outpatient (CLI) | payer BC ==
[~2022-04-01] VITALS: Ht 162.6 cm; Wt 63.0 kg
== END ==
LOC: OPSV 09:00
DX: D50.9 Iron deficiency anemia, unspecified (principal); E86.0 Dehydration; K90.9 Intestinal malabsorption, unspecified
CPT/HCPCS: 96360; 96361; 96372; J3420

== ENCOUNTER → 2022-04-03 | Outpatient (CLI) | payer BC ==
[2022-04-03 16:41] LABS: HEMOGLOBIN 11.4 gm/dl (12.3-15.3); RED BLOOD COUNT 4.1 M/UL (4.00-5.10); WHITE BLOOD COUNT 5.2 K/UL (4.5-11.0)
== END ==
LOC: LAB 16:04
PROVIDERS: Internal Medicine
DX: D64.9 Anemia, unspecified (principal); E87.6 Hypokalemia; D50.9 Iron deficiency anemia, unspecified; K90.9 Intestinal malabsorption, unspecified; E53.8 Deficiency of other specified B group vitamins; Z15.09 Genetic susceptibility to other malignant neoplasm
CPT/HCPCS: 36415; 80053; 82607; 82728; 83540; 83550; 83735; 85025

== ENCOUNTER → 2022-04-04 | Outpatient (CLI) | payer BC ==
[~2022-04-04] VITALS: Ht 162.6 cm; Wt 63.0 kg
== END ==
LOC: OPSV 09:47
DX: E86.0 Dehydration (principal); N17.9 Acute kidney failure, unspecified; K90.9 Intestinal malabsorption, unspecified; Z80.0 Family history of malignant neoplasm of digestive organs
CPT/HCPCS: 96365; 96366; J3475; J7030

== ENCOUNTER → 2022-04-07 | Outpatient (CLI) | payer BC | LOC: LAB 15:23 | PROVIDERS: Internal Medicine | DX: R79.0 Abnormal level of blood mineral (principal); K90.9 Intestinal malabsorption, unspecified; Z80.9 Family history of malignant neoplasm, unspecified | CPT/HCPCS: 36415; 80053; 83735; J7030 ==

== ENCOUNTER → 2022-04-08 | Outpatient (CLI) | payer BC | LOC: OPSV 09:11 | DX: E86.0 Dehydration (principal); N17.9 Acute kidney failure, unspecified | CPT/HCPCS: 96360; 96361 ==

== ENCOUNTER → 2022-04-10 | Outpatient (CLI) | payer BC | LOC: LAB 13:49 | PROVIDERS: Internal Medicine | DX: K90.9 Intestinal malabsorption, unspecified (principal); R79.0 Abnormal level of blood mineral; Z15.09 Genetic susceptibility to other malignant neoplasm | CPT/HCPCS: 36415; 80053; 83735 ==

== ENCOUNTER → 2022-04-11 | Outpatient (CLI) | payer BC | LOC: OPSV 09:31 | DX: E78.5 Hyperlipidemia, unspecified (principal); N17.9 Acute kidney failure, unspecified; E86.0 Dehydration; K90.9 Intestinal malabsorption, unspecified | CPT/HCPCS: 80061; 80076; 84443; 96361; 96365; J1756 ==

== ENCOUNTER → 2022-04-14 | Outpatient (CLI) | payer BC | LOC: LAB 16:20 | PROVIDERS: Internal Medicine | DX: K90.9 Intestinal malabsorption, unspecified (principal); R79.0 Abnormal level of blood mineral; Z15.09 Genetic susceptibility to other malignant neoplasm | CPT/HCPCS: 36415; 80053; 83735 ==

== ENCOUNTER → 2022-04-15 | Outpatient (CLI) | payer BC | LOC: OPSV 09:28 | DX: E86.0 Dehydration (principal); N17.9 Acute kidney failure, unspecified; R79.0 Abnormal level of blood mineral; K90.9 Intestinal malabsorption, unspecified | CPT/HCPCS: 96365; 96366; J3475; J7030 ==

== ENCOUNTER → 2022-04-17 | Outpatient (CLI) | payer BC | LOC: LAB 17:13 | PROVIDERS: Internal Medicine | DX: K90.9 Intestinal malabsorption, unspecified (principal); E61.2 Magnesium deficiency | CPT/HCPCS: 36415; 80053; 83735 ==

== ENCOUNTER → 2022-04-18 | Outpatient (CLI) | payer BC | LOC: OPSV 09:27 | DX: E86.0 Dehydration (principal) | CPT/HCPCS: 96360; 96361; J7030 ==

== ENCOUNTER → 2022-04-21 | Outpatient (CLI) | payer BC | LOC: LAB 16:18 | PROVIDERS: Internal Medicine | DX: K90.9 Intestinal malabsorption, unspecified (principal); R79.0 Abnormal level of blood mineral; Z15.09 Genetic susceptibility to other malignant neoplasm | CPT/HCPCS: 36415; 80053; 83735 ==

== ENCOUNTER → 2022-04-23 | Outpatient (CLI) | payer BC | LOC: LAB 15:55 | PROVIDERS: Internal Medicine | DX: K90.9 Intestinal malabsorption, unspecified (principal); R79.0 Abnormal level of blood mineral; Z15.09 Genetic susceptibility to other malignant neoplasm | CPT/HCPCS: 36415; 80053; 83735 ==

== ENCOUNTER → 2022-04-24 | Outpatient (CLI) | payer BC ==
[~2022-04-24] VITALS: Ht 162.6 cm; Wt 63.0 kg
== END ==
LOC: OPSV 09:00
DX: N17.9 Acute kidney failure, unspecified (principal); R79.0 Abnormal level of blood mineral; D50.9 Iron deficiency anemia, unspecified; K90.9 Intestinal malabsorption, unspecified; E86.0 Dehydration; Z15.09 Genetic susceptibility to other malignant neoplasm
CPT/HCPCS: 96365; 96366; J3475

== ENCOUNTER → 2022-05-05 | Outpatient (CLI) | payer BC | LOC: LAB 16:11 | PROVIDERS: Internal Medicine | DX: K90.9 Intestinal malabsorption, unspecified (principal); R79.0 Abnormal level of blood mineral; Z15.09 Genetic susceptibility to other malignant neoplasm | CPT/HCPCS: 36415; 80053; 83735 ==

== ENCOUNTER → 2022-05-06 | Outpatient (CLI) | payer BC ==
[~2022-05-06] VITALS: Ht 162.6 cm; Wt 63.0 kg
== END ==
LOC: OPSV 08:44
DX: E86.0 Dehydration (principal)
CPT/HCPCS: 96360; 96361; 96372; J3420; J7030

== ENCOUNTER → 2022-05-08 | Outpatient (CLI) | payer BC | LOC: LAB 16:53 | PROVIDERS: Internal Medicine | DX: K90.9 Intestinal malabsorption, unspecified (principal); R78.9 Finding of unspecified substance, not normally found in blood | CPT/HCPCS: 36415; 80053; 83735 ==

== ENCOUNTER → 2022-05-12 | Outpatient (CLI) | payer BC | LOC: LAB 17:12 | PROVIDERS: Internal Medicine | DX: K90.9 Intestinal malabsorption, unspecified (principal); R79.0 Abnormal level of blood mineral | CPT/HCPCS: 36415; 80053; 83735 ==

== ENCOUNTER → 2022-05-13 | Outpatient (CLI) | payer BC | LOC: OPSV 09:34 | DX: E86.0 Dehydration (principal); K90.9 Intestinal malabsorption, unspecified | CPT/HCPCS: 96360; 96361 ==

== ENCOUNTER → 2022-05-19 | Outpatient (CLI) | payer BC | LOC: LAB 15:16 | PROVIDERS: Internal Medicine | DX: K90.9 Intestinal malabsorption, unspecified (principal); R79.0 Abnormal level of blood mineral; Z15.09 Genetic susceptibility to other malignant neoplasm | CPT/HCPCS: 80053; 83735 ==

== ENCOUNTER → 2022-05-26 | Outpatient (CLI) | payer BC ==
[2022-05-26 17:16] LABS: BUN/CREATININE RATIO 15 (0-10)
== END ==
LOC: LAB 15:39
PROVIDERS: Internal Medicine
DX: K90.9 Intestinal malabsorption, unspecified (principal); Z15.09 Genetic susceptibility to other malignant neoplasm
CPT/HCPCS: 36415; 80053; 83735

== ENCOUNTER → 2022-06-03 | Outpatient (CLI) | payer BC | LOC: LAB 14:31 | PROVIDERS: Nurse Practitioner Family | DX: E86.0 Dehydration (principal); N17.9 Acute kidney failure, unspecified | CPT/HCPCS: 36415; 80053; 83735 ==

== ENCOUNTER → 2022-06-09 | Outpatient (CLI) | payer BC | LOC: LAB 15:58 | PROVIDERS: Nurse Practitioner Family | DX: E87.6 Hypokalemia (principal); R79.0 Abnormal level of blood mineral | CPT/HCPCS: 36415; 80053; 83735 ==

== ENCOUNTER → 2022-06-10 | Outpatient (CLI) | payer BC | LOC: OPSV 09:31 | DX: E86.0 Dehydration (principal); K90.9 Intestinal malabsorption, unspecified; Z15.09 Genetic susceptibility to other malignant neoplasm | CPT/HCPCS: 96360; 96361 ==

== ENCOUNTER → 2022-06-16 | Outpatient (CLI) | payer BC | LOC: LAB 12:17 | PROVIDERS: Internal Medicine | DX: K90.9 Intestinal malabsorption, unspecified (principal); Z15.09 Genetic susceptibility to other malignant neoplasm; R79.0 Abnormal level of blood mineral | CPT/HCPCS: 36415; 80053; 82607; 82728; 83540; 83550; 83735 ==

== ENCOUNTER → 2022-06-17 | Outpatient (CLI) | payer BC | LOC: OPSV 09:37 | DX: E86.0 Dehydration (principal); K90.9 Intestinal malabsorption, unspecified; Z15.09 Genetic susceptibility to other malignant neoplasm | CPT/HCPCS: 96360; 96361 ==

== ENCOUNTER → 2022-06-23 | Outpatient (CLI) | payer BC | LOC: LAB 14:57 | PROVIDERS: Internal Medicine | DX: R79.0 Abnormal level of blood mineral (principal); K90.9 Intestinal malabsorption, unspecified; Z15.09 Genetic susceptibility to other malignant neoplasm | CPT/HCPCS: 36415; 80053; 83735 ==

== ENCOUNTER → 2022-06-24 | Outpatient (CLI) | payer BC | LOC: OPSV 08:43 | DX: E87.6 Hypokalemia (principal); E86.0 Dehydration; Z15.09 Genetic susceptibility to other malignant neoplasm; K90.9 Intestinal malabsorption, unspecified | CPT/HCPCS: 96360; 96361; J3480 ==

== ENCOUNTER → 2022-07-04 | Outpatient (CLI) | payer BC | LOC: OPSV 07-01 10:00 | PROVIDERS: Internal Medicine | DX: K90.9 Intestinal malabsorption, unspecified (principal); R79.0 Abnormal level of blood mineral; Z15.09 Genetic susceptibility to other malignant neoplasm; D50.9 Iron deficiency anemia, unspecified; E86.0 Dehydration; N17.9 Acute kidney failure, unspecified | CPT/HCPCS: 80053; 83735; 96360; 96361 ==

== ENCOUNTER → 2022-07-07 | Outpatient (CLI) | payer BC | LOC: LAB 16:37 | PROVIDERS: Internal Medicine | DX: K90.9 Intestinal malabsorption, unspecified (principal); Z15.09 Genetic susceptibility to other malignant neoplasm; R79.0 Abnormal level of blood mineral | CPT/HCPCS: 36415; 80053; 83735 ==

== ENCOUNTER → 2022-07-08 | Outpatient (CLI) | payer BC | LOC: OPSV 10:00 | DX: D50.9 Iron deficiency anemia, unspecified (principal); K90.9 Intestinal malabsorption, unspecified; E86.0 Dehydration; R79.0 Abnormal level of blood mineral | CPT/HCPCS: 96360; 96361; 96372; J3420; J3475; J7030 ==

== ENCOUNTER → 2022-07-14 | Outpatient (CLI) | payer BC ==
[2022-07-14 12:48] LABS: BUN/CREATININE RATIO 23 (0-10)
== END ==
LOC: LAB 11:57
PROVIDERS: Internal Medicine
DX: E86.0 Dehydration (principal); R79.0 Abnormal level of blood mineral
CPT/HCPCS: 36415; 80053; 83735

== ENCOUNTER → 2022-07-15 | Outpatient (CLI) | payer BC | LOC: OPSV 09:34 | DX: E86.0 Dehydration (principal); R79.0 Abnormal level of blood mineral | CPT/HCPCS: 96360; 96361 ==

== ENCOUNTER → 2022-07-21 | Outpatient (CLI) | payer BC ==
[2022-07-21 15:30] LABS: HEMOGLOBIN 12.4 gm/dl (12.3-15.3); RED BLOOD COUNT 4.19 M/UL (4.00-5.10); WHITE BLOOD COUNT 5.9 K/UL (4.5-11.0)
[2022-07-21 16:05] LABS: BUN/CREATININE RATIO 20 (0-10)
== END ==
LOC: LAB 14:53
PROVIDERS: Internal Medicine Hematology & Oncology
DX: C83.30 Diffuse large B-cell lymphoma, unspecified site (principal); E86.0 Dehydration; R79.0 Abnormal level of blood mineral
CPT/HCPCS: 36415; 80053; 82378; 82728; 83540; 83550; 83735; 85025

== ENCOUNTER → 2022-07-28 | Outpatient (CLI) | payer BC | LOC: LAB 12:45 | PROVIDERS: Internal Medicine | DX: E86.0 Dehydration (principal); R79.0 Abnormal level of blood mineral; Z15.09 Genetic susceptibility to other malignant neoplasm | CPT/HCPCS: 80053; 81001; 83735 ==

== ENCOUNTER → 2022-08-04 | Outpatient (CLI) | payer BC | LOC: LAB 12:09 | PROVIDERS: Internal Medicine | DX: E86.0 Dehydration (principal); R79.0 Abnormal level of blood mineral | CPT/HCPCS: 36415; 80053; 83735 ==

== ENCOUNTER → 2022-08-11 | Outpatient (CLI) | payer BC | LOC: LAB 15:20 | PROVIDERS: Internal Medicine | DX: R79.0 Abnormal level of blood mineral (principal); Z15.09 Genetic susceptibility to other malignant neoplasm; K90.9 Intestinal malabsorption, unspecified | CPT/HCPCS: 36415; 80053; 83735 ==

== ENCOUNTER → 2022-08-12 | Outpatient (CLI) | payer BC ==
[~2022-08-12] VITALS: Ht 162.6 cm; Wt 63.0 kg
== END ==
LOC: OPSV 09:00
DX: R79.0 Abnormal level of blood mineral (principal); E86.0 Dehydration
CPT/HCPCS: 96365; 96366; J3475; J7030

== ENCOUNTER → 2022-08-18 | Outpatient (CLI) | payer BC | LOC: LAB 09:21 | PROVIDERS: Internal Medicine | DX: K90.9 Intestinal malabsorption, unspecified (principal); R79.0 Abnormal level of blood mineral; Z15.09 Genetic susceptibility to other malignant neoplasm | CPT/HCPCS: 36415; 80053; 83735 ==

== ENCOUNTER → 2022-08-25 | Outpatient (CLI) | payer BC | LOC: LAB 14:54 | PROVIDERS: Internal Medicine | DX: E86.0 Dehydration (principal); R79.0 Abnormal level of blood mineral | CPT/HCPCS: 36415; 80053; 83735 ==